=== PATIENT | female | born 1985 | race African-American/Black ===

== ENCOUNTER 2017-02-20 11:55 | Inpatient (IN) ==
[2017-02-20] MEDS ORDERED: ONDANSETRON 4 MG/2 ML VIAL IV STA (13:21)
[2017-02-20] MEDS ORDERED: HYDROmorphone 2 MG/1 ML VIAL IV STA (13:21)
[2017-02-20] MEDS ORDERED: HYDROmorphone 2 MG/1 ML VIAL ONE (13:38)
[2017-02-20] MEDS ORDERED: ONDANSETRON 4 MG/2 ML VIAL ONE (13:38)
--- NOTE | 2017-02-20 13:45 | Emergency Department Note ---
I, Tami Arredondo, am scribing for, and in the presence of, Delmis Noble DO 13:09. IReal Debra, DO, personally performed the services described in this documentation, ascribed by Tami Arredondo in my presence, and it is both accurate and complete . Arrival - Arrival Chief Complaint: Abdominal / Flank Pain Stated Complaint: Hernia near belly button. In pain ED Nursing Triage Note: C/O Having a known hernia ., states was told by last year that she had an umbilical hernia , states she just has not had the time to get it fixed, this am, states she sneezed and felt the hernia pop out., states since that time she is having severe abd.pain Mode of Arrival: Ambulatory Limitations: No Limitations Source: Patient Time Seen by Provider: 02/20/17 12:59 - History of Present Illness HPI Narrative: Pt is a 31 y/o female who came to ED with c/o painful hernia at the umbilical region after sneezing this morning. Pt notes having sinus issues lately, when sneezing this morning the hernia popped out and has become painful. She reports having appointment for surgery for last year but it fell through. She reports the hernia has always been hard but never painful or reducible. No other complaint/pain in ED. Onset (ago): hour(s) Consistency: constant Severity: mild, moderate Severity scale (1-10): 4 Quality: aching Allergies/Adverse Reactions: Allergies Allergy/AdvReac Type Severity Reaction Status Date / Time No Known Allergies Allergy Unverified 02/20/17 12:02 Home Medications: Home Medications Medication Instructions Recorded Confirmed Type No Known Home Medications [No 02/20/17 02/20/17 History Known Home Medications] Review of System - Review of System 12 point system: reviewed and no additional remarkable complaints except as stated - Review of System Constitutional: Absent: chills, fever Respiratory: Absent: respiratory distress Cardiovascular: Absent: chest pain Gastrointestinal: Present: abdominal pain (hernia at umbilical region, painful and hard). Absent: nausea, vomiting Musculoskeletal: Absent: arm pain, neck pain Skin: Absent: rash Neurological: Absent: headache Medical,Surgical,& Family Hx - Family History Family History: noncontributory - Social History Smoking Status: Never smoker Frequency of Alcohol Use: None Type of Drug Use: None Marital Status: Single Lives With:: Alone Functional capacity: independent ambulation Exam Vital Signs: Vital Signs Temperature 98.7 F 02/20/17 12:40 Pulse Rate 75 02/20/17 12:40 Respiratory Rate 16 02/20/17 12:40 Blood Pressure 132/85 02/20/17 12:40 O2 Sat by Pulse Oximetry 100 02/20/17 11:57 - General General appearance: alert, in no apparent distress - Head Head exam: Present: atraumatic, normocephalic - Eye Eye exam: Present: PERRL, EOMI - ENT ENT exam: Present: mucous membranes moist. Absent: mucous membranes dry - Neck Neck exam: Present: full ROM, trachea midline - Chest Chest inspection: Present: symmetric chest wall rise - Respiratory Respiratory exam: Present: normal lung sounds bilaterally. Absent: respiratory distress - Cardiovascular Cardiovascular exam: Present: regular rate, normal rhythm, normal heart sounds - Abdominal Exam Abdominal exam: Present: soft, mass (golf-size, hard mass at the umbilicus area that is not reducible). Absent: guarding, rebound - Extremities Exam Extremities exam: Present: full ROM. Absent: pedal edema - Neurological Exam Neurological exam: Present: alert, oriented X3, CN II-XII intact. Absent: motor sensory deficit - Psychiatric Psychiatric exam: Present: normal affect, normal mood - Skin Skin exam: Present: warm, dry Course Course Narrative: pt will be admitted to DR Sandoval. Results - Labs CBC & BMP: 02/20/17 13:12 02/20/17 13:12 Lab Results: I have reviewed the patients labs Labs: Laboratory Tests 02/20/17 13:12 MCV 82.9 L Neut % (Auto) 75.1 H Lymph % (Auto) 17.0 L Laboratory Tests 02/20/17 13:12 BUN/Creatinine Ratio 23.00 H Globulin 4.3 H Albumin/Globulin Ratio 0.8 L - Diagnostic Findings Procedure: CT Abdomen and Pelvis: report reviewed by me (Umbilical hernia with loop of small bowel slightly distended could indicate early incarceration. Bulky enlarged uterus, likely uterine leiomyomas.) Disposition Clinical Impression: Hernia Case discussed with: patient Disposition: Still a Patient Condition: Stable Time of Disposition: 15:46
--- NOTE | 2017-02-20 13:50 | CT Report ---
CT abdomen pelvis Indication: Umbilical hernia Comparison: None available Technique: Axial CT imaging of the abdomen and pelvis is performed without contrast. Findings: Cardiac and lung bases are within normal limits. CT abdomen: The liver spleen pancreas and adrenal glands are normal in size and density. No evidence of focal lesion is demonstrated in these solid organs. Kidneys are normal in size and density. No evidence of hydronephrosis or nephrolithiasis is seen. The bowel caliber is normal and no wall thickening or adjacent inflammatory change is seen. No evidence of free fluid or free air is present. There is umbilical hernia containing a loop of small bowel. The bowel loop appears slightly distended. Appendix appears normal. CT pelvis: The bowel and bladder appear within normal limits. The uterus is enlarged and bulky in appearance. Impression: Umbilical hernia with loop of small bowel slightly distended could indicate early incarceration. Bulky enlarged uterus, likely uterine leiomyomas.. This CT exam was performed using one or more the following dose reduction techniques: Automated exposure control, adjustment of the MA and/or KV according to patient size, or use of iterative reconstruction technique. PROCEDURE INTERPRETED AT [facility] DEPARTMENT OF RADIOLOGY Final Report Signed by: Dr. Sinan Tran
[2017-02-20 13:55] LABS: Basophils % 0.2 % (0.0-0.8); Eosinophils # 0.1 10*3/uL (0.0-0.87); Eosinophils % 0.7 % (0.00-10.9); Hematocrit 40.2 VOL% (35.7-47.0); Hemoglobin 13.2 GM/DL (12.0-16.0); Immature Granulocytes % 0.5 %; Immature Granulocytes Absolute 0.05 #; Lymphocytes # 1.6 10*3/uL (1.4-4.0); Mean Corpuscular HGB Conc 32.8 GM/DL (32-36); Mean Corpuscular Hemoglobin 27 PG (27-34); Mean Corpuscular Volume 82.9 FL (87-102); Mean Platelet Volume 11.4 FL (9.6-12.0); Monocytes # 0.6 10*3/uL (0.11-0.8); Monocytes % 6.5 % (1.7-12.7); Neutrophils # 7.1 10*3/uL (1.4-7.4); Neutrophils % 75.1 % (38.7-73.9); Platelet Count 272 T/CUMM (130-400); Red Blood Count 4.85 MC/CUMM (3.8-5.5); Red Cell Distribution Width 14.3 % (9.3-17.3); White Blood Count 9.5 T/CUMM (4-12)
[2017-02-20 14:19] LABS: Alanine Aminotransferase 24 U/L (13-56); Albumin 3.7 G/DL (3.4-5.0); Alkaline Phosphatase 66 U/L (45-117); Aspartate Amino Transferase 20 U/L (0-37); Bilirubin,Total < 0.39 MG/DL (0.2-1.0); Blood Urea Nitrogen 14 MG/DL (7-18); Calcium 9.3 MG/DL (8.5-10.1); Glucose 91 MG/DL (74-106); Osmolality,Calculated 275.7 MOS/KG (273-304); Potassium 3.8 MMOL/L (3.5-5.1); Sodium 138 MMOL/L (136-145)
[2017-02-20] MEDS ORDERED: ALUMINUM/MAGNES/SIMETH MAX STR 30 ML UDCUP PO PRN (15:25)
[2017-02-20] MEDS ORDERED: ACETAMINOPHEN 325 MG TABLET PO PRN (15:25)
--- NOTE | 2017-02-20 15:36 | General Surg History&Physical ---
Assessment and Plan - Time spent with patient Time spent with patient: Greater than 30 minutes (1) Umbilical hernia, incarcerated Status: Acute Assessment and plan: Impression: 1. Incarcerated umbilical hernia Plan: 1. Was able to reduce the hernia in the emergency room so she is going be admitted for surgery tomorrow. 2. Strict bedrest some clear liquids and then surgery in the morning. Current Visit: Yes History of Present Illness Chief complaint: Painful mass umbilicus History of present illness: Ms. Freire is a 31 year old female -[place] who presented to the emergency room because the onset of pain and swelling in the umbilicus. She knew she had an umbilical hernia there at [facility] in the past but says she has not been able to take off work to get it fixed. She started to sneeze today and the subcu pop out in it by getting bigger and more tender. Came to the emergency room where a CT scan abdomen pelvis was performed and it showed the hernia with some some bile out in the hernia sac itself. While in the emergency room just with careful easy pressure I was able to get the pop back in. At this point we are going to admit her so we can plan to taken to surgery tomorrow electively and repair this hernia. Home Medications Medication Instructions Recorded Confirmed Type No Known Home Medications [No 02/20/17 02/20/17 History Known Home Medications] Allergies Allergy/AdvReac Type Severity Reaction Status Date / Time No Known Allergies Allergy Unverified 02/20/17 12:02 Medical,Surgical,& Family Hx - Medical History Medical History: noncontributory - Surgical History Surgical History: noncontributory - Social History Smoking Status: Never smoker Frequency of Alcohol Use: None Type of Drug Use: None Exam - Constitutional Vitals: Period Temp Pulse Resp BP Sys/Spring Pulse Ox Last 24 Hr 98.7 F-98.7 F 75-75 16-16 132-132/85-85 100 General appearance: mild distress - Head Head exam: Present: normal inspection - ENT ENT exam: Present: normal exam - Neck Neck exam: Present: normal inspection - Respiratory Respiratory exam: Present: clear to auscultation bilaterally, rales - Cardiovascular Cardiovascular exam: Present: RRR - GI/Abdominal GI/Abdominal exam: Present: hypoactive bowel sounds, hernia (Umbilical hernia that was incarcerated but was reduced), tenderness (Tenderness about the mass of the umbilicus), soft - Extremities Exam Extremities exam: Present: normal inspection - Back Exam Back exam: Present: normal inspection - Neurological Exam Neurological exam: Present: alert, oriented X3, CN II-XII intact - Skin Skin exam: Present: normal color, warm, dry 12 point system: reviewed and no additional remarkable complaints except as stated Quality Measures - VTE Contraindication to Pharmacological VTE Prophylaxis: High Risk of Bleeding Results - Labs CBC & BMP: 02/20/17 13:12 02/20/17 13:12 Lab Results: I have reviewed the past 24 hour labs
--- NOTE | 2017-02-20 16:44 | XRay Report ---
Portable chest Indication: Preoperative study Comparison: Not available Findings: Cardiomediastinal contours are normal. Lungs are clear bilaterally. No acute osseous abnormalities. Visualized upper abdomen demonstrates no acute pathology. Impression: Normal chest PROCEDURE INTERPRETED AT [facility] DEPARTMENT OF RADIOLOGY Final Report Signed by: Leslie Bowers MD
[2017-02-20] MEDS: DEXTROSE 5% NACL 0.45% 1,000 ML IV SCH (20:23)
[2017-02-20] MEDS: DOCUSATE SODIUM 100 MG CAPSULE PO SCH (20:28)
[2017-02-20 20:59] LABS: PT Patient Result 10.6 SECS; Partial Thromboplastin Time 34.5 SECS (0-40)
[2017-02-21] MEDS: DEXTROSE 5% NACL 0.45% 1,000 ML IV SCH ×3 (06:11→20:50)
--- NOTE | 2017-02-21 07:10 | Order Completion Report ---
See report scanned to EMR
[2017-02-21] MEDS ORDERED: PANTOPRAZOLE 40 MG VIAL IV SCH (09:00)
[2017-02-21] MEDS ORDERED: ceFAZolin 1,000 MG VIAL ONE (09:04)
[2017-02-21] MEDS ORDERED: BUPIVACAINE 0.25% 50 ML VIAL ONE (09:04)
[2017-02-21] MEDS: DOCUSATE SODIUM 100 MG CAPSULE PO SCH ×2 (09:06→21:18)
[2017-02-21] MEDS ORDERED: TISSUE ADHESIVE 1 EACH APPLICATOR TOP ONE (11:50)
[2017-02-21] MEDS ORDERED: CHLORHEXIDINE 4% SOLN 118 ML BOTTLE TOP ONE (13:07)
[2017-02-21] MEDS ORDERED: BISACODYL 5 MG TABLET PO PRN (13:09)
--- NOTE | 2017-02-21 13:22 | Operative Note ---
Date of procedure: 02/21/17 Pre-op diagnosis: Incarcerated umbilical hernia Post-op diagnosis: same Procedure: Operative note: Preoperative diagnosis: Incarcerated umbilical hernia of recent episode of bowel obstruction secondary to incarceration Postop diagnosis: Same Procedure: Reduction of incarcerated umbilical hernia with Stratus mesh repair of hernia defect Surgeon Dr. Sandoval Pocketbook Maker Michaela Hood, HILLARY NARVAEZ Anesthesia was general with local Brief history: 31-year-old female who notes she had an umbilical hernia had seen somebody about it about a year ago but said she could not get it fixed because of her work. She came into the emergency room last night with a sudden onset of pain and swelling in this area of the hernia. CT scan suggested small bowel out in it at this point with partial bowel obstruction present. She had some nausea but no vomiting at this point. While in the emergency room with a little bit of manipulation is able to reduce the hernia itself so we put her on the floor to bring her surgery at this time. Procedure: With patient prepped and draped in sterile fashion in supine position timeout and antibiotics completed approaches area of the umbilicus. I did not think that we could get to this thing easily by Drew and inferior incision to the umbilicus because everything was superior and the defect seem to be superior at this point. I felt her best option was to go superior to the umbilicus and a transverse inferior incision. We infiltrated local anesthetic and made a transverse incision on top of this abdominal wall above the umbilicus and dissected down to the skin subtenons tissue. We quickly encountered the hernia sac at this point and I dissected down around the edges of it mobilizing it from the subcutaneous tissue. Once I had it free and almost down to the fascia I went ahead and opened it and encountered a good bit of omentum that was stuck in the hernia sac. Pulled with some this omentum up and went across with hemostats and ties of 2-0 Ethibond so that we could read to use the rest of the back and the abdominal cavity. Once that was done we dissected the hernia sac free from the fascia at this point but is too thin to get a peritoneal layer over this area. At that point I was able to go ahead and open this up transversely through the hernia defect since it was about the size of my thumb I could not do much with it at this point. At that point I went ahead and opened it transversely so we could get underneath it and I could dissected peritoneum free from the underside of the fascia at this time. We mobilize subtenons tissue around the hernia off the fascia so that we just get a good look at the fascia. Once we had it clear we took a Stratus mesh and tapered it to fit into this wound bed and sutured it down with 0 Prolene suture in horizontal mattress fashion secured and tied it down securely. We then washed with an Ancef solution at this point and with good shape and looking good I then closed over the mesh with a running 0 Prolene suture of the fascia just to be sure that we had it seal there. Once that was done I then made a separate stab wound leg a #7 Tobias-Boone drain into the wound bed and tied it with 3-0 nylon. We then closed subtenons tissue with interrupted 3-0 Vicryl the skin running 4-0 Monocryl Dermabond was applied along with a bulky dressing and the patient taken recovery room. Estimated blood loss 20 cc Sponge count correct 2 Drains one #7 Tobias-Boone Complications none Condition stable satisfactory Anesthesia: GETA, local (0.25% Marcaine with epinephrine mixed evidence of wounds and Xylocaine plain) Surgeon / Physician: Konstantin Sandoval Pocketbook Maker: Michaela Hood Estimated blood loss: other (30 cc) Specimens: other (Hernia sac hernia content) Condition: stable Disposition: floor Results - Labs CBC & BMP: 02/20/17 13:12 02/20/17 13:12 Discharge Plan - Discharge Medications No Action No Known Home Medications [No Known Home Medications] - Follow Up or Referral - Forms/Instructions
--- NOTE | 2017-02-21 13:36 | Anesthesia Post-Op ---
Anesthesia Post OP - Post Ansesthetic Evaluation Patient seen in post op: Yes Resp: within normal limits CV: within normal limits Mental: within normal limits Temp: within normal limits Wzuw-[id number]-Qunaurmia: within normal limits Nausea and Vomiting: within normal limits Pain: within normal limits
[2017-02-21] MEDS ORDERED: MIDAZOLAM 2 MG/2 ML VIAL ONE (13:42)
[2017-02-21] MEDS ORDERED: SEVOFLURANE 1 UNIT/15 MINUTE INH ONE (13:42)
[2017-02-21] MEDS ORDERED: PROPOFOL 200 MG/20 ML VIAL IV ONE (13:42)
[2017-02-21] MEDS ORDERED: HYDROmorphone 2 MG/1 ML VIAL ONE (13:42)
[2017-02-21] MEDS ORDERED: ONDANSETRON 4 MG/2 ML VIAL ONE (13:43)
[2017-02-21] MEDS ORDERED: DEXAMETHASONE 10 MG/1 ML VIAL ONE (13:43)
[2017-02-21] MEDS ORDERED: LACTATED RINGERS 2,000 ML IV ONE (13:43)
[2017-02-21] MEDS ORDERED: GLYCOPYRROLATE 0.4 MG/2 ML VIAL ONE (13:43)
[2017-02-21] MEDS ORDERED: fentaNYL 100 MCG/2 ML VIAL ONE (13:43)
[2017-02-21] MEDS ORDERED: ROCURONIUM 100 MG/10 ML VIAL IV ONE (13:43)
[2017-02-21] MEDS ORDERED: NEOSTIGMINE 10 MG/10 ML VIAL ONE (13:43)
[2017-02-21] MEDS ORDERED: KETOROLAC 30 MG/1 ML VIAL ONE (13:43)
[2017-02-21] MEDS: ONDANSETRON 4 MG/2 ML VIAL IV PRN ×2 (14:41→21:14)
[2017-02-21] MEDS: HYDROmorphone 2 MG/1 ML VIAL IV PRN ×2 (14:48→23:35)
[2017-02-21 17:08] LABS: Hematocrit 35.2 VOL% (35.7-47.0); Hemoglobin 11.6 GM/DL (12.0-16.0)
[2017-02-21] MEDS: KETOROLAC 15 MG/1 ML VIAL IV SCH ×2 (17:21→21:19)
[2017-02-21] MEDS ORDERED: PROMETHAZINE 25 MG/1 ML VIAL IM PRN (17:55)
[2017-02-22] MEDS: KETOROLAC 15 MG/1 ML VIAL IV SCH ×4 (01:49→18:30)
[2017-02-22 05:27] LABS: Basophils % 0.1 % (0.0-0.8); Hematocrit 34.1 VOL% (35.7-47.0); Hemoglobin 11.3 GM/DL (12.0-16.0); Immature Granulocytes % 0.6 %; Lymphocytes % 12.1 % (21.3-54.2); Mean Corpuscular HGB Conc 33.1 GM/DL (32-36); Mean Corpuscular Hemoglobin 27 PG (27-34); Mean Corpuscular Volume 82.4 FL (87-102); Mean Platelet Volume 11.7 FL (9.6-12.0); Monocytes # 1.3 10*3/uL (0.11-0.8); Monocytes % 7.9 % (1.7-12.7); Neutrophils # 13.1 10*3/uL (1.4-7.4); Neutrophils % 79.3 % (38.7-73.9); Platelet Count 279 T/CUMM (130-400); Red Blood Count 4.14 MC/CUMM (3.8-5.5); Red Cell Distribution Width 14.1 % (9.3-17.3); White Blood Count 16.5 T/CUMM (4-12)
[2017-02-22 05:53] LABS: Calcium 8.6 MG/DL (8.5-10.1); Osmolality,Calculated 276.4 MOS/KG (273-304); Potassium 3.6 MMOL/L (3.5-5.1)
[2017-02-22] MEDS: DEXTROSE 5% NACL 0.45% 1,000 ML IV SCH ×3 (06:15→16:57)
[2017-02-22] MEDS: ENOXAPARIN 40 MG/0.4 ML SYRINGE SUBCUT SCH (06:58)
[2017-02-22] MEDS: PANTOPRAZOLE 40 MG TABLET PO SCH (08:49)
[2017-02-22] MEDS: DOCUSATE SODIUM 100 MG CAPSULE PO SCH ×2 (08:49→20:08)
--- NOTE | 2017-02-22 10:48 | Event Note ---
This patient underwent an umbilical hernia repair with biologic mesh on [address] Sandoval. She has a JUDITH drain in place with about 30 cc of serosanguineous output. Overall she is doing well but she had a lot of nausea last night and does not really feel ready for regular food yet. Her pain is well controlled. She is not having any nausea currently. He has not really gotten up and walked around at all yet. She is afebrile with normal vital signs and her umbilical incision is clean and dry. JUDITH drain is serosanguineous. We will try to increase her activity and I discussed the importance of getting out of bed with her today. She can have diet as tolerated but may not be ready for it yet today due to her nausea. We will see how she looks tomorrow but she is not ready for discharge home yet today.
[2017-02-23] MEDS: DEXTROSE 5% NACL 0.45% 1,000 ML IV SCH ×2 (01:06→11:08)
[2017-02-23] MEDS: KETOROLAC 15 MG/1 ML VIAL IV SCH ×2 (02:11→08:50)
[2017-02-23 07:45] VITALS: BP 119/68
[2017-02-23] MEDS: DOCUSATE SODIUM 100 MG CAPSULE PO SCH (08:50)
[2017-02-23] MEDS: ENOXAPARIN 40 MG/0.4 ML SYRINGE SUBCUT SCH (08:50)
[2017-02-23] MEDS: PANTOPRAZOLE 40 MG TABLET PO SCH (08:50)
--- NOTE | 2017-02-23 09:53 | Discharge Summary ---
Hospital Course - Hospital Course Hospital Course: This patient was admitted for umbilical hernia that was treated with umbilical hernia repair with mesh on 02/21/[address] Sandoval. She did well postoperatively she had some serosanguineous output from her JUDITH drain was about 30-40 cc and was too high removed prior to discharge. She was tolerating her diet well after some initial postoperative nausea but she looked excellent the morning of discharge and was tolerating regular diet with no nausea or vomiting. Pain is well controlled. Patient was begging to go home. She was told to call Dr. Mata 's office tomorrow to arrange follow-up and she was taught how to take care of her JUDITH drain record output for his follow-up appointment. Discharge Plan - Discharge Data Disposition: Disch To Home/Self Care Condition at Discharge: Stable Discharge Diet: advance to your usual diet Activity: no lifting Hygiene: may shower Weight Bearing at Discharge: full weight bearing Driving: other (Do not drive or operate heavy machinery for at least 24 hours and after you are off of narcotic pain medications.) Contact your physician if you experience:: fever over 101, Difficulty voiding, Redness or swelling, Nausea/Vomiting, Shortness of breath, Bleeding, pain uncontrolled by pain medications Wound / Dressing Care Instructions: It is okay to shower. Do not scrub the incision aggressively or submerge it under water. - Discharge Medications New RX: HYDROcodone/ACETAMIN 7.5-325 [[place] 7.5-325] 1 tablet PO Q4H PRN #20 tablet PRN Reason: Pain Moderate (4-7) - Follow Up or Referral Follow Up: Konstantin Sandoval MD [Physician] - 1 Week - Forms/Instructions Exam - Constitutional Vitals: Period Temp Pulse Resp BP Sys/Spring Pulse Ox Last 24 Hr 97.3 F-98.6 F 76-96 18-20 99-119/60-72 94-100 General appearance: no acute distress, morbidly obese - Head Head exam: Present: normal inspection, normocephalic - Eye Eye exam: Present: EOMI Pupils: Present: KATHLEEN - ENT ENT exam: Present: normal exam - Neck Neck exam: Present: normal inspection - Respiratory Respiratory exam: Present: clear to auscultation bilaterally. Absent: accessory muscle use, chest wall tenderness - Cardiovascular Cardiovascular exam: Present: regular rate and rhythm. Absent: systolic murmur , tachycardia - GI/Abdominal GI/Abdominal exam: Present: normal bowel sounds, tenderness (Minimal expected postoperative tenderness.), soft, other (The incision over the umbilical hernia repair site is clean and dry. The JUDITH drain has serosanguineous output.). Absent: rebound - Extremities Exam Extremities exam: Present: normal inspection, normal capillary refill - Back Exam Back exam: Present: normal inspection - Neurological Exam Neurological exam: Present: alert, oriented X3 - Psychiatric Psychiatric exam: Present: normal affect, normal mood - Skin Skin exam: Present: normal color, warm DS: Provider Date of admission: 02/20/17 15:25 Primary care physician: . No PCP Attending physician on admission: Konstantin Sandoval MD Consults: 02/20/17 15:32 Consult to Anesthesiology [CONS] Routine Consulting Provider: Reason for Anesthesiology: Pre-op Clearance Discharging clinician: Pablo Rudd MD Expected date of discharge: 02/23/17
--- NOTE | 2017-02-24 11:20 | Pathology Report from [facility] ---
[facility] ACCESSION # : [id number] PATIENT NAME : Kirstie Garcia ORDERING DR : AKIRA GARCIAS MD CLINICAL HX: Incarcerated umbilical hernia POST-OP DX: SAme SPECIMEN INFO: Umbilical hernia contents GROSS DESCRIPTION: The specimen is received in formalin labeled with the patients name and consists of an aggregate of fatty, fibromembranous tissue measuring 8.2 x 6.0 cm. Master Rigger sections submitted in one cassette. DIAGNOSIS FOR KIRSTIE GARCIA: Mesothelial lined fibroadipose tissue c/w umbilical hernia sac. COLLECTED DATE: 02/21/2017 [facility] REPORT DATE: 02/24/2017 ELECTRONICALLY SIGNED BY: José Miguel Bailon M.D. 02/24/2017 - 10:17:38 [email or web address]
--- NOTE | 2017-03-03 13:37 | Physician Query Form ---
CLICK EDIT DOCUMENT TO SELECT QUERY ANSWER --> OK --> SIGN Juany Edouard RN, CCDS Certified Clinical Environmental Services Manager W) [phone] (f) [phone] [email or web address] PROVIDERS: Make your selection(s) from the choices in EACH section by typing an "x" and enter comments in the comment section. Please use your independent medical judgment in providing your response. This request does not imply that any particular answer is desired or expected. CLINICAL INDICATORS: (Providers should not edit this section) Height: Height of 64" Weight: Wt. 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 235#, per dietary notes "Class 3 Obesity ", "Increased knowledge of Diet": Nutrition d/c needs: unable to determine at this time- s/p surgery this pm- not an appropriate time to discuss wt reduction diet. If applicable, please provide an associated diagnosis related to the abnormal BMI: BMI of 40 or greater: ( ) Overweight ( x ) Obesity ( ) Morbid//Severe Obesity ( ) Obesity with Alveolar Hypoventilation ( ) Weight Gain ( ) BMI is not significant ( ) Other, please specify: ( ) Clinically unable to determine COMMENTS: PLEASE ALSO DOCUMENT RESPONSE IN PROGRESS NOTES AND/OR DISCHARGE SUMMARY Use of terms such as suspected, likely, or probable (associated with a specific diagnosis that is being evaluated, monitored, or treated as if it exists) are acceptable and can be restated in the discharge summary if not ruled out. MTDD
== END 2017-02-23 12:06 | disposition home or self-care (01) | DRG 354 ==
LOC: N.ED 11:55 → N.EDINP 15:25 → N.2E 19:11
PROVIDERS: ADMIT Specialist; ATTEND Specialist

== ENCOUNTER 2021-07-26 04:54 | Inpatient (IN) ==
[2021-07-26 05:35] LABS: Basophils % 0.2 % (0.0-0.8); Eosinophils # 0.2 10*3/uL (0.0-0.87); Eosinophils % 2.3 % (0.00-10.9); Hemoglobin 10.8 GM/DL (12.0-16.0); Immature Granulocytes % 0.9 %; Immature Granulocytes Absolute 0.09 #; Lymphocytes # 2.1 10*3/uL (1.4-4.0); Mean Corpuscular HGB Conc 32.7 GM/DL (32-36); Mean Corpuscular Volume 81.3 FL (87-102); Mean Platelet Volume 11.9 FL (9.6-12.0); Monocytes % 7.3 % (1.7-12.7); Neutrophils % 67.3 % (38.7-73.9); Platelet Count 190 T/CUMM (130-400); Red Blood Count 4.06 MC/CUMM (3.8-5.5); Red Cell Distribution Width 15.7 % (9.3-17.3); White Blood Count 9.7 T/CUMM (4-12)
[2021-07-26] MEDS: LACTATED RINGERS 1,000 ML IV PRN ×2 (05:41→14:49)
[2021-07-26 05:59] LABS: Alanine Aminotransferase 18 U/L (13-56); Albumin 2.6 G/DL (3.4-5.0); Alkaline Phosphatase 100 U/L (45-117); Aspartate Amino Transferase 18 U/L (0-37); Bilirubin,Total < 0.39 MG/DL (0.20-1.00); Blood Urea Nitrogen 11 MG/DL (7-18); Carbon Dioxide 23 MMOL/L (21-32); Estimated Glom Filtration Rate 178 ML/MIN; Glucose 90 MG/DL (74-106); Osmolality,Calculated 271.8 MOS/KG (273-304); Potassium 3.8 MMOL/L (3.5-5.1); Sodium 137 MMOL/L (136-145); Total Protein 7.1 G/DL (6.4-8.2)
[2021-07-26] MEDS ORDERED: OXYTOCIN/LR 20 UNIT/1,000 ML BAG IV SCH (06:00)
[2021-07-26] MEDS ORDERED: FAMOTIDINE 20 MG/2 ML VIAL IV ONE (09:45)
[2021-07-26] MEDS ORDERED: CITRIC ACID/SODIUM CITRATE 30 ML UDCUP PO ONE (09:45)
[2021-07-26] MEDS ORDERED: NALOXONE 0.4 MG/ML VIAL IV PRN (09:45)
[2021-07-26] MEDS ORDERED: hydrOXYzine HCL 25 MG/1 ML VIAL IM PRN (09:45)
[2021-07-26] MEDS ORDERED: LACTATED RINGERS 1,000 ML IV ONE (09:45)
[2021-07-26] MEDS ORDERED: diphenhydrAMINE 50 MG/1 ML VIAL IV PRN ×2 (09:45)
[2021-07-26] MEDS ORDERED: ePHEDrine 50 MG/ML VIAL IV PRN (09:45)
[2021-07-26] MEDS ORDERED: PROMETHAZINE 25 MG/1 ML VIAL IM ONE (09:45)
[2021-07-26] MEDS ORDERED: BUTORPHANOL 2 MG/ML VIAL IM PRN (09:46)
[2021-07-26] MEDS ORDERED: BUTORPHANOL 2 MG/ML VIAL IV PRN (09:54)
[2021-07-26] MEDS ORDERED: fentaNYL 2 MCG/ROPIV 0.2% EPID 100 ML EPIDURAL SCH (10:00)
[2021-07-26] MEDS: ONDANSETRON 4 MG/2 ML VIAL IV PRN ×2 (10:00→15:00)
[2021-07-26 14:12] LABS: Mucus,Urine Moderate /LPF (Occasional); RBC,Urine 2 /HPF (0-4); Squamous Epithelial Cell,Urine Occasional /HPF (0-10); Urine Appearance Clear (Clear); Urine Color Yellow (Yellow)
[2021-07-26 14:14] LABS: Glucose,Urine (UA) Negative (Negative); Protein,Urine 1+ MG/DL; Urine Specific Gravity 1.022 (1.001-1.035)
[2021-07-26 14:15] LABS: Bilirubin,Urine Negative (Negative); Blood, Urine Negative (Negative); Ketones,Urine 1+ mg/dL (Negative); Nitrite,Urine Negative (Negative); Urine Urobilinogen 0.2 EU/DL (<2.0)
[2021-07-26] MEDS ORDERED: miSOPROStoL 200 MCG TABLET ONE (18:18)
[2021-07-26] MEDS ORDERED: CARBOPROST TROMETHAMINE 250 MCG/ML AMP IM ONE (18:19)
[2021-07-26] MEDS ORDERED: METHYLERGONOVINE 0.2 MG/1 ML AMP ONE (18:19)
[2021-07-26] MEDS ORDERED: OXYTOCIN/LR 30 UNIT/1,000 ML BAG IV ONE (18:47)
[2021-07-26 21:31] LABS: Cord Venous Blood HCO3 21.5 MMOL/L; Cord Venous Blood PCO2 45.2 MMHG; Cord Venous Blood PO2 32.6
[2021-07-26] MEDS ORDERED: MEASLES/MUMPS/RUBELLA VACCINE 0.5 ML VIAL SUBCUT ONE (21:48)
[2021-07-26] MEDS ORDERED: BISACODYL 10 MG SUPP RECTAL PRN (21:48)
[2021-07-26] MEDS ORDERED: WITCH HAZEL PADS 100/JAR TOP PRN (21:48)
[2021-07-26] MEDS ORDERED: LANOLIN 50% CREAM 0.3 OZ TUBE TOP PRN (21:48)
[2021-07-26] MEDS ORDERED: DIPH/TET/ACEL PERT BOOSTER VACCINE 0.5 ML VIAL IM ONE (21:48)
[2021-07-26] MEDS ORDERED: OXYTOCIN/LR 20 UNIT/1,000 ML BAG IV ONE (21:48)
[2021-07-26] MEDS ORDERED: HYDROCORTISONE 2.5% RECTAL CREAM 30 GM TUBE TOP PRN (21:48)
[2021-07-26] MEDS ORDERED: BENZOCAINE 20%/MENTHOL 0.5% SPRAY 56 GM CAN TOP PRN (21:48)
[2021-07-26] MEDS ORDERED: ONDANSETRON 4 MG/2 ML VIAL IV PRN (21:48)
[2021-07-26] MEDS ORDERED: ACETAMINOPHEN 325 MG TABLET PO PRN (21:48)
[2021-07-26] MEDS ORDERED: oxyCODONE/ACETAMINOPHEN 5-325 MG TABLET PO PRN (21:48)
[2021-07-26] MEDS ORDERED: RHO(D) IMMUNE GLOBULIN 300 MCG SYRINGE IM ONE (21:48)
[2021-07-26] MEDS: IBUPROFEN 800 MG TABLET PO PRN (23:01)
[2021-07-27] MEDS: oxyCODONE/ACETAMINOPHEN 5-325 MG TABLET PO PRN ×2 (00:53→14:03)
[2021-07-27 07:14] LABS: Basophils % 0.2 % (0.0-0.8); Eosinophils # 0.1 10*3/uL (0.0-0.87); Eosinophils % 0.3 % (0.00-10.9); Hematocrit 31.7 VOL% (35.7-47.0); Hemoglobin 10.3 GM/DL (12.0-16.0); Immature Granulocytes % 0.9 %; Immature Granulocytes Absolute 0.16 #; Lymphocytes % 11.5 % (21.3-54.2); Mean Corpuscular HGB Conc 32.5 GM/DL (32-36); Mean Corpuscular Volume 80.9 FL (87-102); Mean Platelet Volume 12.4 FL (9.6-12.0); Monocytes % 9.1 % (1.7-12.7); Platelet Count 191 T/CUMM (130-400); Red Blood Count 3.92 MC/CUMM (3.8-5.5); Red Cell Distribution Width 15.9 % (9.3-17.3); White Blood Count 17.1 T/CUMM (4-12)
[2021-07-27] MEDS: IBUPROFEN 800 MG TABLET PO PRN ×2 (08:20→21:50)
[2021-07-27] MEDS: DOCUSATE SODIUM 100 MG CAPSULE PO SCH ×2 (08:50→21:48)
[2021-07-28] MEDS: IBUPROFEN 800 MG TABLET PO PRN (04:42)
[2021-07-28 04:45] VITALS: BP 129/60
[2021-07-28] MEDS: DOCUSATE SODIUM 100 MG CAPSULE PO SCH (09:31)
[2021-07-28] MEDS: oxyCODONE/ACETAMINOPHEN 5-325 MG TABLET PO PRN (11:10)
== END 2021-07-28 13:15 | disposition home or self-care (01) | DRG 807 ==
LOC: N.LD 04:54 → N.OB 23:25
PROVIDERS: ADMIT Obstetrics & Gynecology; ATTEND Obstetrics & Gynecology